=== PATIENT | female | born 2000 | race Caucasian/White ===

== ENCOUNTER 2022-04-16 13:10 | Outpatient (CLI) | payer OTHER, SELFPAY ==
[2022-04-16 13:27] LABS: Influenza Type A Negative (Negative); Influenza Type B Negative (Negative)
== END 2022-04-16 13:11 | disposition home or self-care (01) ==
PROVIDERS: Visit Provider Family Medicine
DX: M79.10 Myalgia, unspecified site (principal); R53.83 Other fatigue; J02.9 Acute pharyngitis, unspecified
CPT/HCPCS: 87804

== ENCOUNTER 2023-11-20 22:27 | Emergency (ER) | payer OTHER, SELFPAY ==
[2023-11-20 22:31] VITALS: BP 121/78; PULSE 84; PULSE 85; RESP 20; TEMP 36.7; O2SAT 99
--- NOTE | 2023-11-20 23:15 | ED.GENADULT ---
HPI - General Adult General Chief complaint: Extremity Pain/Injury, Lower Stated complaint: calf tenderness- L Time Seen by Provider: 11/20/23 22:57 Source: patient Mode of arrival: ambulatory Limitations: no limitations History of Present Illness HPI narrative: 22-year-old female coming in complaining of calf pain for about 2 weeks. Pain gets worse with long periods of standing and better with rest. Pain is located on the lateral left calf. Patient points to an area about the size of a half dollar. The pain does not radiate up and down the calf. Patient denies feeling short of breath. 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 She denies any chest pain. Related Data Home Medications ?Medication ?Instructions ?Recorded ?Confirmed norgestimate 0.25 mg-ethinyl 35 tab PO DAILY 04/16/22 11/20/23 estradiol 35 mcg tablet (Estarylla) Allergies Allergy/AdvReac Type Severity Reaction Status Date / Time No Known Drug Allergies Allergy Verified 11/20/23 22:32 Review of Systems Status of ROS: Reports: 6 or more systems reviewed and unremarkable except as noted in History and below [facility] [place] Surgical History Status post appendectomy ?Z90.49 - Acquired absence of other specified parts of digestive tract (ICD-10) Social History Smoking Status: Never smoker Exam Narrative: Exam Narrative: Well-nourished well-developed patient in no acute distress. Alert and oriented. Answers questions appropriately. Mood and affect are appropriate. Thoughts are goal oriented and rational. No tangential or magical thinking noted. Patient speaks in full sentences without needing to catch her breath. HEENT: Normocephalic atraumatic. Pupils are equally round reactive to light. Extraocular muscles are intact. Conjunctivae are moist without any icterus noted. Moist mucous membranes. Cardiovascular: Heart is regular rate and rhythm S1 and S2 are present without any murmurs. Lungs: Clear to auscultation bilaterally no wheezes rhonchi or rales are appreciated. Patient takes deep breaths without any discomfort. Extremities: Bilateral lower extremities are without edema. Calf is normal appearance, there is no swelling or erythema. She has no tenderness with palpation of the area. There is a negative Homans sign. Skin: Well perfused without any obvious rashes. Const: Vital Signs, click to edit/add: Vital Signs - 24 hr 11/20/23 22:31 Temperature 98.0 F Pulse Rate [Right Pulse Oximeter] 84 Respiratory Rate 20 Blood Pressure [Ri ght Upper Arm] 121/78 Pulse Oximetry 99 Oxygen Delivery Me thod Room Air Course Course ED Course: Patient is concerned about a DVT. Given her signs and symptoms I think that this is a less likely cause of her discomfort versus musculoskeletal pain. Also the patient is in the ER after hours and because I felt that this was not an emergency as symptoms have been present for 2 weeks and the patient is vital is stable, I did not call in the radiation therapy technician. I offer the patient to stay here until the morning to have an ultrasound 1st thing in the morning. We also discussed returning as an outpatient in the morning. Patient would like that option. They are full should return in the morning as an outpatient. She will call the ER and check on my chart for her results as we discussed I will not be here tomorrow. Patient understands this and understands that she needs to be proactive to get her results. In the event that this is positive patient will be sent back to the ER for evaluation. Vital Signs Vital signs: Initial Vital Signs Temperature 98.0 F 11/20/23 22:31 Temperature Source Temporal Artery Scan 11/20/23 22:31 Pulse Rate 84 11/20/23 22:31 Respiratory Rate 20 11/20/23 22:31 Blood Pressure 121/78 11/20/23 22:31 Blood Pressure Mean 92 11/20/23 22:31 Blood Pressure Position Sitting 11/20/23 22:31 Pulse Oximetry 99 11/20/23 22:31 Oxygen Delivery Method Room Air 11/20/23 22:31 Vital Signs Temperature 98.0 F 11/20/23 22:31 Pulse Rate 84 11/20/23 22:31 Respiratory Rate 20 11/20/23 22:31 Blood Pressure 121/78 11/20/23 22:31 Pulse Oximetry 99 11/20/23 22:31 Oxygen Delivery Method Room Air 11/20/23 22:31 Temperature 98.0 F 11/20/23 22:31 Pulse Rate 84 11/20/23 22:31 Respiratory Rate 20 11/20/23 22:31 Blood Pressure 121/78 11/20/23 22:31 Pulse Oximetry 99 11/20/23 22:31 Oxygen Delivery Method Room Air 11/20/23 22:31 Medical Decision Making MDM Narrative Medical decision making narrative: 22-year-old female with calf pain -plan per above. Discharge Plan Discharge Clinical Impression: Calf pain Patient Disposition: Home, Self-Care Condition: Stable Additional Instructions: Will return in the morning for an outpatient lower extremity ultrasound to rule out deep venous thrombosis. In the event that this is positive you will likely be sent back to the ER for evaluation. If nothing is seen by the telegraph repeater technician, the test will be read by a radiologist and you should have results within a few hours in your my charge. You can also call the ER to get your results later in the day. Prescriptions: No Action norgestimate-ethinyl estradiol [Estarylla] 0.25-35 mg-mcg tablet 35 tab PO DAILY Patient Comments: TAKE 1 TABLET BY MOUTH EVERY DAY Follow Up/Referrals: Bernie Amanda PA-C [Primary Care Provider] - Stand Alone Forms: MyHealth Info Instructions
[2023-11-20 23:33] VITALS: BP 113/74; PULSE 81; RESP 20; TEMP 36.7; O2SAT 99
[2023-11-21 00:06] VITALS: BP 113/74; PULSE 81; RESP 20; TEMP 36.7
== END 2023-11-21 00:06 | disposition home or self-care (01) ==
PROVIDERS: Emergency Provider Family Medicine; PCP Student in an Organized Health Care Education/Training Program
DX: M79.662 Pain in left lower leg (principal)
CPT/HCPCS: 99282; 99283

== ENCOUNTER 2023-11-21 10:58 | Outpatient (CLI) | payer OTHER, SELFPAY ==
--- NOTE | 2023-11-21 11:00 | CRLHL7_ITS ---
For Patients: As a result of the Century Cures Act, medical imaging exams and procedure reports are released immediately into your electronic medical record. You may view this report before your referring provider. If you have questions, please contact your health care provider. INDICATION: Left calf pain COMPARISON: None TECHNIQUE: A compression venous ultrasound exam was performed of the left lower extremity using coley-scale imaging, color Doppler and spectral Doppler analysis. FINDINGS: Sonographic imaging of the left lower extremity demonstrates normal compressibility and color Doppler venous blood flow within the common femoral vein, deep femoral vein, and the proximal greater saphenous vein. Within the thigh, the femoral vein is patent and compressible. At a lower level, the popliteal and posterior tibial veins also show normal compressibility and color Doppler venous blood flow. Limited imaging of the contralateral groin demonstrates a normal spectral waveform and color Doppler venous blood flow within the right common femoral vein. IMPRESSION: No evidence of deep vein thrombosis within the left lower extremity. Dictated by Owen Ordoñez MD @ 11/21/2023 12:07:05 PM (Electronically Signed)
== END 2023-11-21 10:59 | disposition home or self-care (01) ==
LOC: US 10:59
PROVIDERS: PCP Student in an Organized Health Care Education/Training Program; Visit Provider Family Medicine
DX: M79.669 Pain in unspecified lower leg (principal)
CPT/HCPCS: 93971

== ENCOUNTER 2023-12-16 13:02 | Outpatient (CLI) | payer OTHER, SELFPAY ==
[2023-12-16 14:31] LABS: HIV 1/2/P24 Combo Screen* Negative (Negative)
[2023-12-16 14:39] LABS: Hepatitis C Virus Antibody* Negative (Negative)
[2023-12-16 14:51] LABS: Hepatitis B Surface Antibody* Negative (Negative)
== END 2023-12-16 13:03 | disposition home or self-care (01) ==
LOC: OUTLAB 13:03
PROVIDERS: PCP Student in an Organized Health Care Education/Training Program; Visit Provider Family Medicine
DX: T75.89XA Other specified effects of external causes, initial encounter (principal)
CPT/HCPCS: 36415; 86703; 86706; 86803